=== PATIENT | female | born 1965 | race Caucasian/White ===

== ENCOUNTER 2020-01-21 10:48 | Day surgery (SDC) | payer BC ==
[~2020-01-21 10:48] MED LIST: Metoclopramide 10 MG/2 ML SDV IV PRN
[2020-01-21] MEDS: Sodium Chloride 0.9% 1,000 ML IV SCH (11:27)
[2020-01-21] MEDS ORDERED: Propofol 1,000 MG/100 ML SDV ONE (13:20)
--- NOTE | 2020-01-21 20:38 | OR ---
DATE OF OPERATION: 01/21/2020 SURGEON: Otilio Lopez MD PREOPERATIVE DIAGNOSIS: Screening colonoscopy. POSTOPERATIVE DIAGNOSIS: Screening colonoscopy. PROCEDURE PERFORMED: Screening colonoscopy. ANESTHESIA: MAC. ESTIMATED BLOOD LOSS: None. COMPLICATIONS: None. INDICATION FOR THE PROCEDURE: The patient is a 54-year-old female, here today for her first colonoscopy. Denies any family history of colon cancer. Denies any change in bowel habits. DESCRIPTION OF THE PROCEDURE: Informed consent was obtained from the patient. The patient was taken to the operating room and placed on the table in left lateral decubitus position. Monitored anesthesia care was administered. Colonoscope then advanced through the anus, directed toward the cecum. Cecum was reached and identified by appendiceal orifice and ileocecal valve. Colonoscope was then slowly withdrawn. No polyps. No masses. No areas of ischemia or inflammation identified. The air was desufflated on the way out. Rectum was also otherwise unremarkable. Colonoscope then withdrawn. FINDINGS: Normal colonoscopy. RECOMMENDATIONS: Would recommend repeat screening colonoscopy in 10 years. FANNY/GIORGIO /[id number]
== END 2020-01-21 14:45 | disposition home or self-care (01) ==
LOC: LB.SDS 10:48
PROVIDERS: ATTEND Surgery
DX: Z12.11 Encounter for screening for malignant neoplasm of colon (principal); M25.551 Pain in right hip; M54.41 Lumbago with sciatica, right side; L71.9 Rosacea, unspecified; Z98.890 Other specified postprocedural states; Z88.2 Allergy status to sulfonamides
CPT/HCPCS: 45378; J2704; J7030; G0121